=== PATIENT | female | born 1960 | race African-American/Black ===

== ENCOUNTER 2017-11-06 21:33 | Emergency (ER) | payer OTHER ==
[2017-11-06 23:44] LABS: BASOPHIL % 0.3 % (0-2)
[2017-11-06 23:45] LABS: PLATELET COUNT 82 x10^3mcL (130-400)
[2017-11-06 23:47] LABS: microscopic required? YES; urine erythrocyte NEGATIVE (NEGATIVE)
[2017-11-06 23:54] LABS: AMPHETAMINE QUAL UR NONE DETECTED (NEG <=1000)
[2017-11-06 23:59] LABS: CALCIUM 9.1 mg/dL (8.5-10.1); CHLORIDE SERUM 101 mmol/L (98-107); CREATININE SERUM 0.6 mg/dL (0.6-1.0); GFR1 > 60 mL/min; GLUCOSE SERUM 184 mg/dL (74-106); POTASSIUM SERUM 3.7 mmol/L (3.5-5.1); SODIUM SERUM 137 mmol/L (136-145)
[2017-11-07 00:11] LABS: ALBUMIN 4.1 g/dL (3.4-5.0); AST/SGOT 57 U/L (15-37); BILIRUBIN TOTAL 0.4 mg/dL (0.20-1.00); TOTAL PROTEIN, SERUM 7.6 g/dL (6.4-8.2)
[2017-11-07 00:12] LABS: ALKALINE PHOSPHATASE 57 U/L (46-116); ALT/SGPT 61 U/L (14-59); AMYLASE 95 U/L (25-115); CHOLESTEROL 143 mg/dL (<200); HDL CHOLESTEROL 51 mg/dL (40-60); LIPASE 164 IU/L (73-393)
[2017-11-07 02:20] VITALS: BP 143/80
== END 2017-11-07 02:20 | disposition home or self-care (01) ==
LOC: ED 21:33
PROVIDERS: Emergency Medicine
DX: M25.512 Pain in left shoulder (principal); I10 Essential (primary) hypertension; E11.9 Type 2 diabetes mellitus without complications; E78.00 Pure hypercholesterolemia, unspecified; Z90.49 Acquired absence of other specified parts of digestive tract; Z90.710 Acquired absence of both cervix and uterus
CPT/HCPCS: 36415; 83880; J1100; J1885; Q0092